=== PATIENT | female | born 2000 | race Caucasian/White ===

== ENCOUNTER 2022-05-30 09:27 | Emergency (ER) | payer OTHER, SELFPAY ==
--- NOTE | ~2022-05-30 | CT_ITS ---
EXAMINATION: CT abdomen pelvis w con DATE: 05/30/2022 11:31 INDICATION: Rectal bleeding. Abdominal pain. TECHNIQUE: Computed tomography (CT) of the abdomen and pelvis was performed with 100 mL Omnipaque-300 intravenous contrast. Automated exposure control and iterative reconstruction technique were employe d. The dose-length product was 1077.25 mGy-cm. COMPARISON: 07/11/2017 FINDINGS: Lung bases are clear. Heart size is normal. No pericardial or pleural effusion. Small sliding-type hi atal hernia. Cholecystectomy clips the gallbladder fossa. Liver, spleen, pancreas, bilateral adrenal glands and left kidney are normal. Unchanged 2 mm nonobstructing stone at the lower pole of the right kidney. T-shaped IUD in expected position within the anteverted uterus. Bladder and bilateral and th e adnexa are normal. Bowels including the appendix are normal. No free intraperitoneal gas or fluid. No pathologically enlarged abdominal or pelvic lymphadenopathy. Bones are unremarkable. IMPRESSION: 1. No acute intra-abdominal/pelvic process. 2. 2 mm nonobstructing stone at a lower pole of the right kidney. 3. IUD in the anteverted uterus. Reviewed, dictated and finalized at location A.
[2022-05-30 09:31] VITALS: BP 122/69; PULSE 85; RESP 16; TEMP 36.5; O2SAT 100
[2022-05-30 10:00] LABS: Basophils Absolute Auto 0.1 K/mm3 (0.0-0.1); Basophils Percent Auto 0.6 % (0.2-1.2); Eosinophils Absolute Auto 0.4 K/mm3 (0-0.3); Eosinophils Percent Auto 4.4 % (0-4.4); Hematocrit 40.2 % (37.0-47.0); Hemoglobin 13.4 g/dL (12.0-15.0); Immature Granulocyte Absolute 0.02 K/mm3 (0.00-0.031); Immature Granulocyte Percent A 0.2 % (0-0.5); Lymphocytes Absolute Auto 1.72 K/mm3 (0.9-3.2); Lymphocytes Percent Auto 19.1 % (18.3-44.2); Mean Corpuscular HGB Conc 33.3 g/dl (32-36); Mean Corpuscular Hemoglobin 29.7 pg (26-34); Mean Corpuscular Volume 89.1 fl (80-100); Mean Platelet Volume 9.8 fl (7.4-10.4); Monocytes Absolute Auto 0.6 K/mm3 (0.1-0.6); Monocytes Percent Auto 7.1 % (2.6-8.5); Neutrophils Absolute Auto 6.2 K/mm3 (1.3-6.7); Neutrophils Percent Auto 68.6 % (45.5-73.1); Platelet Count Result 257 k/mm3 (150-375); Red Blood Count 4.51 M/mm3 (4.2-5.4); Red Cell Distribution Width 12.7 % (11.5-14.5)
[2022-05-30 10:08] LABS: Alanine Aminotransferase 20 U/L (6-35); Albumin Level 4.6 g/dL (3.5-5.1); Alkaline Phosphatase 66 U/L (38-126); Anion Gap 6 mmol/L (8-16); Aspartate Amino Transferase 22 U/L (14-36); Bilirubin,Total 0.4 mg/dL (0.2-1.3); Blood Urea Nitrogen 10 mg/dL (7-17); Calcium 8.7 mg/dL (8.4-10.2); Carbon Dioxide 26 mmol/L (22-30); Chloride 106 mmol/L (98-107); Estimated CRCL calculation 117 ml/min; Estimated Glomerular Filt Rate > 60; Glucose 102 mg/dL (65-110); Potassium 3.5 mmol/L (3.4-5.0); Sodium 138 mmol/L (137-145)
[2022-05-30 10:19] LABS: Prothrombin Time 13.1 Seconds (11.1-14.7)
[2022-05-30 10:20] LABS: Partial Thromboplastin Time 28.7 SECONDS (22.3-36.8)
--- NOTE | 2022-05-30 12:32 | ED.GENADULT ---
HPI - General Adult General Chief complaint: GI Bleed Stated complaint: Blood in stool Time Seen by Provider: 05/30/22 09:33 History of Present Illness HPI narrative: 21-year-old female presenting to the emergency department for evaluation of multiple episodes of bright red blood per rectum. Patient states few days ago she had an episode of bright red blood per rectum that she states she did pass some small clots. Patient states intermittently with and without stool she has passed smaller amounts of blood. Patient denies any prior history of lower GI bleed. Patient did have a cholecystectomy few months ago. Patient states she does still have some intermittent epigastric pain but denies any left upper quadrant pain. Patient denies any current constipation or having to strain with bowel movements. Will be first episode of bright red blood per rectum was more significant she states the other episodes including a bowel movement today was less significant. Patient denies any associated lightheaded or dizziness. Related Data Allergies Allergy/AdvReac Type Severity Reaction Status Date / Time No Known Allergies Allergy Verified 05/30/22 09:45 Review of Systems Review of Systems: CONSTITUTIONAL: Denies fever, chills, or sweats. EYES: Denies visual changes, redness, or discharge. ENT: Denies rhinorrhea, congestion, sore throat, or otalgia. CARDIOVASCULAR: Denies chest pain, palpitations, or edema. RESPIRATORY: Denies cough or dyspnea. GASTROINTESTINAL: See HPI GENITOURINARY: Denies dysuria or hematuria. SKIN: Denies rash or itching. MUSCULOSKELETAL: Denies back pain, joint pain, or myalgia. NEUROLOGIC: Denies headache, numbness, or weakness. [facility] Family History Family History (Updated 07/26/17 @ 11:24 by DOCTOR UNKNOWN) Other Diabetes mellitus Family history of elevated blood lipids Hypertension Social History Social History Smoking status: Never smoker Alcohol intake: never Exam Narrative: APPEARANCE: Well appearing, no pain, no distress, well-nourished. HEAD: normocephalic, atraumatic. EYES: PERRLA/EOMI, conjunctivae clear. NOSE: Normal no drainage NECK: Supple. No adenopathy, no masses. RESPIRATORY: Airway patent, respirations nonlabored. Clear to auscultation bilaterally, no rales, rhonchi, wheezing. CARDIOVASCULAR: Regular rate and rhythm without murmurs rubs or gallops. ABDOMINAL: Soft, nontender, nondistended, normal bowel sounds Rectal: Some tenderness during the GENEVA. Patient did have a nonthrombosed external hemorrhoid. No internal hemorrhoids palpated. No bright red blood per rectum but patient was trace Hemoccult positive. MUSCULOSKELETAL: Moves all extremities. Strength/ROM intact, No edema, No calf tenderness. NEURO: Alert. Cranial nerves II through XII intact. Grossly intact SKIN: Warm, dry. Normal Color Course Course Emergency Course: Patient and family were updated on the results of the work-up. Patient is afebrile patient's hemoglobin is stable. Patient has platelets of 257. Patient's INR is within normal limits. No abnormalities on the CMP. CT scan showed no acute abnormalities. Patient continues to deny any lower abdominal pain at this time. Patient was advised to use a stool softener follow a high-fiber diet and to have close follow-up with GI. Patient was also informed on reasons to return to the emergency room. All question concerns were addressed. Vital Signs Vital signs: Vital Signs Temperature 97.7 F 05/30/22 09:31 Pulse Rate 85 05/30/22 09:31 Respiratory Rate 16 05/30/22 09:31 Blood Pressure 122/69 05/30/22 09:31 Pulse Oximetry 100 05/30/22 09:31 Oxygen Delivery Room Air 05/30/22 09:31 Temperature 97.7 F 05/30/22 09:31 Pulse Rate 82 05/30/22 12:41 Respiratory Rate 16 05/30/22 12:41 Blood Pressure 122/69 05/30/22 09:31 Pulse Oximetry 99 05/30/22 12:41 Oxygen Delivery Room Air 05/30/22 09:31 Medical Decision Making
[2022-05-30 12:41] VITALS: PULSE 82; RESP 16; O2SAT 99
== END 2022-05-30 12:43 | disposition home or self-care (01) ==
PROVIDERS: Emergency Provider Emergency Medicine; PCP Physician Assistant
DX: K62.5 Hemorrhage of anus and rectum (principal); Z97.5 Presence of (intrauterine) contraceptive device; N20.0 Calculus of kidney
CPT/HCPCS: 36415; 74177; 80053; 81025; 85025; 85610; 85730; 86850; 86900; 86901; 99284; Q9967

== ENCOUNTER 2023-01-11 13:23 | Outpatient (CLI) | payer BC, SELFPAY ==
[2023-01-11 14:19] LABS: Hematocrit 40.9 % (37.0-47.0); Hemoglobin 13.8 g/dL (12.0-15.0)
== END 2023-01-11 13:24 | disposition home or self-care (01) ==
PROVIDERS: PCP Physician Assistant; Visit Provider Student in an Organized Health Care Education/Training Program
DX: Z30.432 Encounter for removal of intrauterine contraceptive device (principal)
CPT/HCPCS: 36415; 85014; 85018

== ENCOUNTER 2023-01-12 00:37 | Day surgery (SDC) | payer BC, SELFPAY ==
[2023-01-03 11:00] VITALS: BMI 38.4
--- NOTE | 2023-01-03 11:05 | PC.NURSE ---
Report to the Outpatient Waiting Room, entrance under the green pavilion located off [facility], at time 12:00 on date 01/12/23. Planned Procedure Time: 2:00. Time changes happen often and if your time is changed the preop area will call you the afternoon before. - You and your visitor will be asked to self-screen and do not enter if you have any COVID symptoms. - Only one visitor is requested with a max of two and NO children visitors are allowed at this time. - The patient visitor may be requested to leave or wait in car when not with patient due to distancing restrictions. - A mask is optional within the hospital at this time. Patients may have clear liquids (water, carbonated beverages, clear teas, apple juice) until 3 hours prior to surgery (11:00) with a maximum of 20 ounces. - No food from midnight until time of surgery Take the following medications with a SIP of water the morning of surgery: N/A DO NOT STOP ANY OF YOUR OTHER PRESCRIPTION MEDICATIONS PRIOR TO SURGERY EXCEPT THE FOLLOWING Medications to discontinue per physician: N/A Date to take last dose: N/A Please no make-up, nail cameroonian, hairspray, perfume, deodorant, or body powder the day of surgery. No jewelry (including any body piercings) or valuables the day of surgery, leave them at home. Please take a shower or bath the night before, or the morning of, surgery with an antibacterial soap. Wear comfortable, loose fitting clothing. - Jewelry must be removed prior to entering the operating room. Rings and piercings that are not removed may be cut off. - The hospital will not accept responsibility for valuables. - Please leave all valuables, including medications, at home the day of surgery. If you are going home after surgery, a licensed explosives truck driver must drive you home. - NO public transportation without another adult if you receive anesthesia. - We recommend that an adult stay with you for 24 hours following discharge. - We also recommend that you do not drive, make important decision, drink alcoholic beverages, or take any drugs that were not prescribed by your health care provider for at least 24 hours after your discharge time. Follow any additional instructions given to you from your surgeon. If you or anyone in your household have experienced Covid symptoms in the past week, please notify your surgeon or the nurse liaison at the phone number below for possible testing. Telephone instructions given to PT - BLAINE CASTELLANOS and asked if any additional questions and then verbalized understanding. Patient advised to call surgeon office or pre surgery nurse liaison [phone] if any additional questions.
--- NOTE | 2023-01-11 12:09 | P.PNAN_ITS ---
Anes - Initial Pre Proc Eval Procedure: Operation Date: 01/12/23 12:00 Proposed Procedures p Hysteroscopy with Removal of Intrauterine Device - Samm Lynn MD Date/Time: 01/11/23 12:09 Surgeon: Samm Lynn MD Pre Op Diagnosis: Retained IUD Patient Data Age: 22 Gender: F Height: 1.57 m Weight: 95.25 kg Allergies Allergy/AdvReac Type Severity Reaction Status Date / Time No Known Allergies Allergy Verified 01/12/23 11:11 Home Medications Medication Instructions Recorded Confirmed Type betamethasone dipropionate 0.05 % 1 applic topical DAILY PRN 01/03/23 01/12/23 History topical cream PSORIASIS desonide 0.05 % topical cream 1 applic topical DAILY PRN 01/03/23 01/12/23 History PSORIASIS Patient hx anesthesia problems: none Family hx anesthesia problems: none Results Review: All pre-operative results and documents have been reviewed as part of the pre- operative evaluation. COUNT INCLUDES THE [facility] Past Medical History Medical History (Updated 01/12/23 @ 10:08 by Cristofer Fuentes DO) Anxiety Depression Encounter for removal of intrauterine contraceptive device Psoriasis Rheumatoid arthritis Surgical History Surgical History (Updated 01/12/23 @ 10:08 by Cristofer Fuentes DO) History of cholecystectomy Family History Family History (Updated 07/26/17 @ 11:24 by DOCTOR UNKNOWN) Other Diabetes mellitus Family history of elevated blood lipids Hypertension Social History Social History Years smoked: 2 Smoking status: Former smoker Tobacco type: cigars Smoking end date: 09/13/22 Additional smoking assessment comments: 5 CIGARS/DAY (BLACK AND MILD) Alcohol intake: current Alcohol use details: VERY RARE Substance use: current Substance use type: marijuana Living arrangements: with family Spiritual care concerns: No Anes - Eval Final PreProcedure Day of Procedure 01/11/23 12:09 Patient weight: obese Heart: regular rate and rhythm Lungs: clear to auscultation Airway: Mallampati scale class II Neurological: alert and oriented Last oral intake: >/= 8 hours ASA classification: III Emergent: no Anesthetic plan: proceed Anesthesia type and monitoring: general GIVS and standard monitoring Results Review: All pre-operative results and documents have been reviewed as part of the pre- operative evaluation. Informed Consent: The patient's anesthetic plan and its attendant risks and benefits were discussed with the patient/family/POA. Questions were solicited and answers provided to the satisfaction of the patient/family/POA.
--- NOTE | 2023-01-12 07:42 | PM.IMHP ---
H&P: HPI History of Present Illness Date/Time: 01/12/23 07:42 Chief Complaint: removal of intrauterine contraceptive device IUD strings lost Narrative: 22-year-old female who presents for operative hysteroscopy with removal of IUD. Patient desires to conceive. IUD strings were lost. Ultrasound confirmed intrauterine placement of IUD. Removal of IUD was attempted in the office without success. Review of Systems Cardiovascular: Cardiovascular: Denies chest pain, Denies leg edema, Denies palpitations, Denies dyspnea and Denies dyspnea on exertion Respiratory: Respiratory: Denies cough, Denies dyspnea and Denies dyspnea on exertion Gastrointestinal: Gastrointestinal: Denies abdominal pain, Denies constipation, Denies diarrhea, Denies nausea and Denies vomiting Genitourinary: Genitourinary: Denies hematuria, Denies urinary frequency, Denies dysuria, Denies pelvic pain, Denies urinary incontinence and Denies vaginal discharge Neurologic: Reports system reviewed and no additional complaints, except as documented Psychiatric: Psychiatric: Reports no additional psychiatric complaints Endocrine: Endocrine: Denies palpitations PMFSH Past Medical History Medical History (Updated 12/22/22 @ 10:31 by Jesica Paez CMA) Encounter for removal of intrauterine contraceptive device Family History Family History (Updated 07/26/17 @ 11:24 by DOCTOR UNKNOWN) Other Diabetes mellitus Family history of elevated blood lipids Hypertension Social History Social History Years smoked: 2 Smoking status: Former smoker Tobacco type: cigars Smoking end date: 09/13/22 Additional smoking assessment comments: 5 CIGARS/DAY (BLACK AND MILD) Alcohol intake: current Alcohol use details: VERY RARE Substance use: current Substance use type: marijuana Living arrangements: with family Spiritual care concerns: No Meds Home Medications and Allergies Home Medications Medication Instructions Recorded Confirmed Type betamethasone dipropionate 0.05 % 1 applic topical DAILY PRN 01/03/23 01/03/23 History topical cream PSORIASIS desonide 0.05 % topical cream 1 applic topical DAILY PRN 01/03/23 01/03/23 History PSORIASIS Allergies Allergy/AdvReac Type Severity Reaction Status Date / Time No Known Allergies Allergy Verified 01/03/23 10:58 Exam Const: General: no acute distress Eyes: EOM: EOMs intact bilaterally Neck: Neck: supple Thyroid: thyroid normal Chest: Breast/axilla inspection: normal inspection of the breasts Breast/axilla palpation: normal palpation of the breasts, normal palpation of the axillae and no axillary lymphadenopathy Resp: Effort & Inspection: normal respiratory effort Auscultation: clear to auscultation bilaterally Cardio: Rate: regular rate Rhythm: regular rhythm GI: Inspection: non-distended GI Palp: Yes Soft to palpation, No Tenderness to palpation present (GI) and No Guarding due to palpation present (GI) Auscultation: normal bowel sounds : General: No bladder normal to palpation External Female Exam: normal external appearance Speculum Exam - Vagina: normal vaginal discharge and No vaginal bleeding Speculum Exam - Cervix: nontender Bimanual exam- vagina & uterus: No bladder normal to palpation and No Cervical tenderness present OB/external & speculum: No vaginal bleeding Skin: General skin exam: normal color and no rashes or lesions noted Neuro: Cognition (Neuro): normal cognition Speech: normal speech Extrem: General: normal to inspection and no edema Psych: Mental Status: mental status grossly normal Affect: normal affect Assessment and Plan Assessment and plan (1) Encounter for removal of intrauterine contraceptive device: Code(s): Z30.432 - Encounter for removal of intrauterine contraceptive device Status: Acute Assessment and Plan: 22-year-old female who presents for IUD removal Patient desires to conceive IU
--- NOTE | 2023-01-12 07:44 | WPDHPUPDATE1 ---
History and Physical Update Update Date/Time: 01/12/23 07:44 History and Physical has been reviewed, including an updated exam of the patient. There are NO changes in the patient's condition. Risks, benefits, and alternatives have been discussed and questions answered. Patient agrees to proceed with procedure.
[2023-01-12] MEDS: LACTATED RINGERS 1,000 ML 30 ML IV CONT (11:10)
[2023-01-12] MEDS: ACETAMINOPHEN 500 MG TABLET 1000 MG PO (11:11)
[2023-01-12 11:13] VITALS: BP 123/78; PULSE 93; RESP 16; TEMP 36.6; O2SAT 97
[2023-01-12] MEDS: LIDOCAINE 1% BUFFERED WITH 8.4% SODIUM BICARB 1 ML SYRINGE 10 ML INFILTRATE (12:15)
--- NOTE | 2023-01-12 12:17 | W.PM.PROC2 ---
Procedure Note - Detailed Date of Procedure 01/12/23 Pre-op Diagnosis Retained IUD Post-op Diagnosis Same Procedure Performed paracervical block operative hysteroscopy IUD removal Surgeon Samm Lynn MD Anesthesia General Indications retained IUD Findings IUD in the lower uterine segment, IUD strings attached. normal appearing intrauterine cavity. Normal tubal ostia bilaterally Description of Procedure Joann Johnson Presents for the above procedure. She was counseled as to the indications, risks, benefits, and alternatives to surgery, with the risks including bleeding, infection, damage to surrounding organs, VTE, and complications of anesthesia. Her verbal and written consent was obtained. PROCEDURE: The patient was taken to the OR and general anesthesia induced. She was prepped and draped in Vish stirrups with support of the back and bilateral lower extremities. I/O catheterization performed of the bladder. The above findings were noted. Infiltration with 1% lidocaine at the 3 and 9 o'clock cervical positions was performed. A single tooth tenaculum was placed on the anterior lip of the cervix. The cervix was dilated with sequential Susana dilators. Hysteroscopy, using a normal saline medium, was performed and showed the above findings. hysteroscopic graspers were introduced through the operative hysteroscope change. IUD strings were grasped with hysteroscopic graspers. IUD was removed along with the hysteroscope. IUD was removed in its entirety. Hysteroscope was reintroduced into the uterine cavity. Survey of the cavity was performed and showed normal. The patient tolerated the procedure well. Sponge, lap, and needle counts were correct. The patient was taken to the recovery room in stable condition. Estimated Blood Loss 5 Urine Output 50 Drains No Packing No Pathology None sent Complications No immediate complications Condition Stable Disposition PACU [facility] Billing Surgery - Charge Forward: Surgery Billing
[2023-01-12 12:22] VITALS: BP 108/88; PULSE 92; RESP 14; O2SAT 97
[2023-01-12 12:45] VITALS: BP 110/76; PULSE 76; RESP 20
[2023-01-12] MEDS: oxyCODONE HCL (*CRX) 5 MG TAB IR PO (12:59)
[2023-01-12 13:15] VITALS: BP 120/78; PULSE 80; RESP 20
[2023-01-12 13:30] VITALS: BP 110/75; PULSE 70; RESP 20
== END 2023-01-12 13:37 | disposition home or self-care (01) ==
PROVIDERS: PCP Physician Assistant; Visit Provider Student in an Organized Health Care Education/Training Program
PROC: 0U5B8ZZ Destruction of Endometrium, Via Natural or Artificial Opening Endoscopic (ICD-10-PCS; CPT 58563; principal; 2023-01-12 12:00)
DX: T83.32XA Displacement of intrauterine contraceptive device, initial encounter (principal); Y84.8 Other medical procedures as the cause of abnormal reaction of the patient, or of later complication, without mention of misadventure at the time of the procedure; Z87.891 Personal history of nicotine dependence; F12.90 Cannabis use, unspecified, uncomplicated
CPT/HCPCS: 58562; A9270; J2250; J2405; J2704; J3010; J7120

== ENCOUNTER 2023-03-04 21:17 | Emergency (ER) | payer BC, SELFPAY ==
--- NOTE | ~2023-03-04 | CT_ITS ---
EXAMINATION: CT brain wo con INDICATION: Headache COMPARISON: None TECHNIQUE: Standard unenhanced head CT. The dose-length product (DLP) was 681.00 mGy-cm. The mA was a djusted according to patient size. Iterative reconstruction technique was employed. FINDINGS: There is no intracranial hemorrhage, acute infarction, or abnormal mass lesion. The ventric les are normal. There is no abnormal mass effect or midline shift. The guzman-white matter differentiat ion is normal. The basal cisterns are patent. The orbits are normal. There is mild mucosal thickening of the paranasal sinuses. IMPRESSION: 1. No acute intracranial abnormality. Reviewed, dictated and finalized at location A.
[2023-03-04 21:29] VITALS: BP 131/83; PULSE 101; RESP 18; TEMP 36.9; O2SAT 99
--- NOTE | 2023-03-04 23:03 | ED.HA ---
HPI - Headache General Chief Complaint: Headache Stated Complaint: Deandre GARCÍA arm numbness Time Seen by Provider: 03/04/23 22:51 History of Present Illness HPI Narrative: Patient is a 22-year-old female with a history of migraine headaches here for evaluation of left-sided migraine. Patient states the pain is sharp and stabbing in nature, came on suddenly while she was at rest, concentrated around the left posterior head. - thunderclap quality. She had some tingling in her left hand as well which is what concerned her and prompted her ED evaluation. The tingling has since resolved. Also slightly nauseated and vomited once. She took ibuprofen without relief of her pain. She denies any visual changes, neck stiffness, fevers or chills. Has been congested lately and has been sneezing, has not yet taken covid test. Related Data Home Medications Medication Instructions Recorded Confirmed betamethasone dipropionate 0.05 % 1 applic topical DAILY PRN 01/03/23 01/12/23 topical cream PSORIASIS desonide 0.05 % topical cream 1 applic topical DAILY PRN 01/03/23 01/12/23 PSORIASIS Allergies Allergy/AdvReac Type Severity Reaction Status Date / Time No Known Allergies Allergy Verified 01/26/23 10:11 Review of Systems Review of Systems: Gen: Denies fevers or chills Eyes: Denies eye pain or visual change ENT: Denies congestion Respiratory: Denies shortness of breath or cough CV: Denies chest pain or palpitations GI: Reports nausea and vomiting. Denies abdominal pain or diarrhea denies burning, urgency, frequency or hematuria Musculoskeletal: Denies back pain or muscle pain Neuro: Reports headache, paresthesia in L hand Skin: Denies rash Except as documented, all other systems reviewed and negative [facility] Past Medical History Medical History Anxiety Depression Encounter for removal of intrauterine contraceptive device Psoriasis Rheumatoid arthritis Surgical History Surgical History History of cholecystectomy Family History Family History (Updated 07/26/17 @ 11:24 by DOCTOR UNKNOWN) Other Diabetes mellitus Family history of elevated blood lipids Hypertension Social History Social History Years smoked: 2 Smoking status: Former smoker Tobacco type: cigars Smoking end date: 09/13/22 Additional smoking assessment comments: 5 CIGARS/DAY (BLACK AND MILD) Alcohol intake: current Alcohol use details: VERY RARE Substance use: current Substance use type: marijuana Living arrangements: with family Spiritual care concerns: No Exam Narrative: APPEARANCE: Well appearing, no pain in distress, well-nourished. Head: Normocephalic and atraumatic. EYES: PERRLA/EOMI, conjunctivae clear NOSE: No nasal drainage EARS: External ear normal in appearance THROAT: Oropharynx is clear. Mucous membranes are moist. NECK: Supple. No adenopathy, no masses. RESPIRATORY: Airway patent, respirations nonlabored. Clear to auscultation bilaterally, no rales, rhonchi, wheezing. CARDIOVASCULAR: Regular rate and rhythm without murmurs, rubs, or gallops. ABDOMINAL: Normoactive bowel sounds. Soft, nontender, nondistended. No rebound tenderness or guarding. MUSCULOSKELETAL: Extremities are warm and well-perfused. Moves all extremities well. No edema. NEURO: CN II-XII intact. Normal speech. No focal neurologic deficits. 5/5 strength in bilateral upper and lower extremities. SKIN: Skin is warm and dry. No rashes. PSYCHIATRIC: Normal affect/mood. Course Vital Signs Vital signs: Vital Signs Temperature 98.4 F 03/04/23 21:29 Pulse Rate 101 H 03/04/23 21:29 Respiratory Rate 18 03/04/23 21:29 Blood Pressure 131/83 03/04/23 21:29 Pulse Oximetry 99 03/04/23 21:29 Oxygen Delivery Room Air 03/04/23 21:29 Temperature 98.4 F 03/04/23 21:29 Pulse Rate 95 03/05/23 00:44 R
[2023-03-04] MEDS: diphenhydrAMINE HCl INJ 50 MG/ML VIAL 25 MG IV PUSH (23:26)
[2023-03-04] MEDS: SODIUM CHLORIDE 0.9% IV 1,000 ML 999 ML IV CONT (23:26)
[2023-03-04 23:30] VITALS: BP 123/82; PULSE 89; RESP 18; O2SAT 99
[2023-03-04 23:32] VITALS: BP 90/79; PULSE 84; RESP 17; O2SAT 100
[2023-03-04] MEDS: PROCHLORPERAZINE EDISYLATE 10 MG/2 ML VIAL IV PUSH (23:34)
[2023-03-04 23:47] VITALS: BP 117/106; PULSE 124; RESP 21; O2SAT 99
[2023-03-05 00:02] VITALS: BP 129/83; PULSE 86; RESP 19; O2SAT 99
[2023-03-05 00:17] VITALS: BP 135/90; PULSE 102; RESP 17; O2SAT 100
[2023-03-05 00:44] VITALS: BP 116/68; PULSE 95; RESP 19; O2SAT 100
== END 2023-03-05 00:50 | disposition home or self-care (01) ==
PROVIDERS: Emergency Provider Physician Assistant; PCP Physician Assistant
DX: G43.909 Migraine, unspecified, not intractable, without status migrainosus (principal); L40.9 Psoriasis, unspecified; M06.9 Rheumatoid arthritis, unspecified; Z90.49 Acquired absence of other specified parts of digestive tract; Z87.891 Personal history of nicotine dependence; Z97.5 Presence of (intrauterine) contraceptive device
CPT/HCPCS: 70450; 96361; 96374; 96375; 99284; J0780; J1200; J7030

== ENCOUNTER → 2023-10-04 08:54 | Outpatient (CLI) | payer BC, SELFPAY ==
--- NOTE | ~2023-10-04 | US_ITS ---
EXAMINATION: US OB /maternal detail DATE: 10/04/2023 09:43 INDICATION: Second trimester anatomic survey TECHNIQUE: Real-time ultrasound of the pelvis was performed. COMPARISON: None. FINDINGS: There is a single living fetus in vertex presentation. The placenta is posterior. The measured cervic al length is 4.3 cm. heart rate is 160 beats per minute (bpm). cardiac activity and feta l movement are noted. The amniotic fluid index is subjectively normal. The following anatomy was identified as normal: 4 chamber heart 3 vessel cord cord insertion kidneys urinary bladder stomach spine diaphragm ventricles cisterna magna cerebellum The following biometric data were obtained: Biparietal diameter (BPD): 4.8 cm; head circumference (HC): 18.1 cm; abdominal circumference (AC): 14 .9 cm; femur length (FL): 3.1 cm. These measurements are concordant. Estimated weight is 326 g +/- 49 g, which correlates with the 79th percentile when 02/25/2024 is used as estimated date of delivery. As single measurements, these parameters are each equal to the following estimated gestational ages w ith ranges of +/- 2 standard deviations: BPD: 20 weeks 3 days +/- 1 weeks 5 days. HC: 20 weeks 3 days +/- 1 weeks 3 days. AC: 20 weeks 1 days +/- 2 weeks 0 days. FL: 19 weeks 5 days +/- 1 weeks 6 days. estimated gestational age based solely on measurements from this exam is 20 weeks 1 days +/- 1 weeks 3 days. IMPRESSION: 1. Single living fetus in vertex presentation. 2. Estimated weight is 326 g +/- 49 g, which correlates with the 79th percentile when 02/25/2024 is used as estimated date of delivery. Reviewed, dictated and finalized at location F. [employer] IMPRESSION: 1. Single living fetus in vertex presentation. 2. Estimated weight is 326 g +/- 49 g, which correlates with the 79th per centile when 02/25/2024 is used as estimated date of delivery.
== END ==
PROVIDERS: PCP Student in an Organized Health Care Education/Training Program; Visit Provider Obstetrics & Gynecology
DX: Z34.92 Encounter for supervision of normal pregnancy, unspecified, second trimester (principal); Z3A.20 20 weeks gestation of pregnancy
CPT/HCPCS: 76805

== ENCOUNTER 2023-12-07 11:37 | Outpatient (RCR) | payer BC, SELFPAY ==
[2023-12-07 12:06] LABS: Basophils Percent Auto 0.3 % (0.2-1.2); Eosinophils Absolute Auto 0.3 K/mm3 (0-0.3); Eosinophils Percent Auto 2.7 % (0-4.4); Hemoglobin 10.5 g/dL (12.0-15.0); Immature Granulocyte Absolute 0.07 K/mm3 (0.00-0.031); Immature Granulocyte Percent A 0.6 % (0-0.5); Lymphocytes Percent Auto 17.6 % (18.3-44.2); Mean Corpuscular HGB Conc 32.8 g/dl (32-36); Mean Corpuscular Hemoglobin 30.2 pg (26-34); Mean Platelet Volume 10.8 fl (7.4-10.4); Monocytes Absolute Auto 0.5 K/mm3 (0.1-0.6); Monocytes Percent Auto 4.7 % (2.6-8.5); Neutrophils Percent Auto 74.1 % (45.5-73.1); Platelet Count Result 201 k/mm3 (150-375); Red Blood Count 3.48 M/mm3 (4.2-5.4); Red Cell Distribution Width 13.5 % (11.5-14.5); White Blood Count 10.8 K/mm3 (4.5-10.0)
[2023-12-07] MEDS: RHO(D) IMMUNE GLOBULIN 300 MCG/2 ML SYRINGE IM (16:08)
== END 2024-03-06 23:59 | disposition home or self-care (01) ==
LOC: ANHLAB 11:37
PROVIDERS: PCP Student in an Organized Health Care Education/Training Program; Visit Provider Obstetrics & Gynecology
DX: Z29.13 Encounter for prophylactic Rho(D) immune globulin (principal); O36.0190 Maternal care for anti-D [Rh] antibodies, unspecified trimester, not applicable or unspecified; Z3A.00 Weeks of gestation of pregnancy not specified
CPT/HCPCS: 36415; 85025; 85461; 86850; 86900; 86901; 90384; 96372; J2790

== ENCOUNTER 2024-02-11 09:04 | Inpatient (IN) | payer BC, SELFPAY ==
[2024-02-11] VITALS (149 sets, daily range): BP systolic 81–191; BP diastolic 43–170; PULSE 58–134; RESP 16–18; TEMP 36.4–37.4; O2SAT 93–100; BMI 37.5
--- NOTE | 2024-02-11 10:53 | LDADM ---
This patient, Joann Johnson, was admitted to Labor/Delivery/Recovery 106 on 02/11/24 at 09:04. Plans for labor, pain management and were discussed with patient. Patient/family oriented to hospital policies and general routines including ID bracelet, bed and alarms, visiting hours, pain management, procedures, bathroom and other care routines, personal items, smoking policy, room service/diet and guest tray routines, security routines, and visiting hours. Patient/Family are encouraged to report perceived risks to care and to ask questions if they do not understand what they are told or what they should do. See [facility] for further documentation.
--- NOTE | 2024-02-11 10:54 | WPDHPUPDATE1 ---
History and Physical Update Update Date/Time: 02/11/24 10:54 23 yo G1 at 38w who presents in labor History and Physical has been reviewed, including an updated exam of the patient. There are NO changes in the patient's condition. Risks, benefits, and alternatives have been discussed and questions answered. Patient agrees to proceed with procedure. A/P: G1 - glucose 168 @ NOB...3 hour normal - Rh neg; needs rhogan - admit to L&D - routine admission orders -GBS neg - expectant management -will augment with AROM -continuous EFM
[2024-02-11] MEDS: LACTATED RINGERS 1,000 ML 125 ML IV CONT ×2 (11:15→13:11)
[2024-02-11 11:37] LABS: Basophils Percent Auto 0.2 % (0.2-1.2); Eosinophils Absolute Auto 0.1 K/mm3 (0-0.3); Eosinophils Percent Auto 0.7 % (0-4.4); Hematocrit 29.3 % (37.0-47.0); Hemoglobin 9.8 g/dL (12.0-15.0); Immature Granulocyte Percent A 0.8 % (0-0.5); Lymphocytes Absolute Auto 2.05 K/mm3 (0.9-3.2); Lymphocytes Percent Auto 17.1 % (18.3-44.2); Mean Corpuscular HGB Conc 33.4 g/dl (32-36); Mean Corpuscular Hemoglobin 28.9 pg (26-34); Mean Corpuscular Volume 86.4 fl (80-100); Mean Platelet Volume 9.3 fl (7.4-10.4); Monocytes Absolute Auto 0.4 K/mm3 (0.1-0.6); Monocytes Percent Auto 3.7 % (2.6-8.5); Neutrophils Absolute Auto 9.3 K/mm3 (1.3-6.7); Neutrophils Percent Auto 77.5 % (45.5-73.1); Platelet Count Result 303 k/mm3 (150-375); Red Blood Count 3.39 M/mm3 (4.2-5.4); Red Cell Distribution Width 14.4 % (11.5-14.5)
[2024-02-11] MEDS: OXYTOCIN 30 UNITS/NS 500 ML 30 UNITS/500 ML BAG 999 UNITS IV CONT (18:50)
--- NOTE | 2024-02-11 19:00 | PM.OBPRVD ---
OB - Vaginal Delivery Note Procedure Delivery date: 02/11/24 Induction method: None Delivery augmentation: Rupture of Membranes Delivery monitor: External FHT and External Uterine Route of delivery: Episiotomy description: None Laceration Description: Perineal - 2nd Degree Delivery repair: vicryl Specimen: No Quantitative Blood Loss (ml): 150 Anesthesia type: Epidural Disposition: Floor Complications: No immediate complications Narrative: Patient pushed for a spontaneous vaginal delivery. The fetus was delivered atraumatically and placed on the maternal abdomen. The cord was clamped and cut after 1 minute of life. The cord was double clamped and cut and a segment of cord was collected for cord gases. Cord blood was collected for blood type and Coomb's testing. The placenta delivered spontaneously and was noted to be intact. The perineum was inspected and 2nd degree perineal laceration was noted. The laceration was repaired with 3-0 vicryl in a running fashion. The uterus was firm and good hemostasis was noted. Baby Date of : 02/11/24 Time of : 18:47 Weeks of gestation at delivery: 38 Infant gender: Male presentation: vertex position: Right Occiput Anterior Placenta delivery description: Spontaneous Cord Vessel Description: 3 Vessels score one minute: 8 score five minutes: 9 AMG Delivery Billing Delivery Delivery: Delivery Charge
[2024-02-11] MEDS: OXYTOCIN 30 UNITS/NS 500 ML 30 UNITS/500 ML BAG 125 UNITS IV CONT (19:30)
--- NOTE | 2024-02-11 21:19 | PC.NURSE ---
Patient transferred to post room # 287 via (W/C ). Support person present. Oriented to unit, room, information board, rooming in, admission packet and security measures. Patient verbalizes understanding.
[2024-02-11] MEDS: IBUPROFEN 600 MG TABLET PO (22:28)
[2024-02-12 01:28] VITALS: BP 112/62; PULSE 69; RESP 18; TEMP 37; O2SAT 97
[2024-02-12] MEDS: ACETAMINOPHEN 325 MG TABLET 650 MG PO ×2 (05:26→17:15)
[2024-02-12 05:50] LABS: Hematocrit 27.4 % (37.0-47.0)
[2024-02-12 08:00] VITALS: BP 100/57; PULSE 73; RESP 16; TEMP 36.4; O2SAT 98
[2024-02-12] MEDS: POLYSACCHARIDE IRON COMPLEX 150 MG CAPSULE PO ×2 (08:53→17:15)
[2024-02-12] MEDS: DOCUSATE SODIUM 100 MG CAPSULE PO ×2 (08:53→17:15)
[2024-02-12] MEDS: IBUPROFEN 600 MG TABLET PO ×2 (08:53→20:09)
[2024-02-12] MEDS: MULTIVIT/MIN/PREN/FOL AC/IRON TABLET 1 TAB PO (08:53)
--- NOTE | 2024-02-12 10:45 | P.PNOB_ITS ---
OB - PN: Subj Subjective Date/time seen: 02/12/24 10:50 Narrative: PPD#1 Joann reports doing well today. Her bleeding is social worker clinical. Her pain is controlled. She is tolerating regular diet, voiding, passing gas, and ambulating without issues. She is breast feeding. She would like her son circumcised. OB - PN: Obj Data Labs 02/12/24 05:44 Labs: Laboratory Results - last 24 hr 02/11/24 02/12/24 10:41 05:44 WBC 12.0 H RBC 3.39 L Hgb 9.8 L 9.0 L Hct 29.3 L 27.4 L MCV 86.4 MCH 28.9 MCHC 33.4 RDW 14.4 Plt Count 303 D MPV 9.3 Immature Gran % (Auto) 0.8 H Neut % (Auto) 77.5 H Lymph % (Auto) 17.1 L [place] % (Auto) 3.7 Eos % (Auto) 0.7 Baso % (Auto) 0.2 Lymph # (Auto) 2.05 [place] # (Auto) 0.4 Eos # (Auto) 0.1 Baso # (Auto) 0.0 Abs Immat Gran (auto) 0.10 H Absolute Neuts (auto) 9.3 H Absolute Nucleated RBC 0.000 Nucleated RBC % 0.0 Blood Type O Negative Antibody Screen Negative OB - PN A/P Assessment and Plan (1) Normal vaginal delivery: Code(s): O80 - Encounter for full-term uncomplicated delivery Status: Acute Plan day: 1 Plan: routine care Comments: - PO pain meds - Regular diet - Ambulation and hydration encouraged - Continue putting baby to breast q2-3hr - Circumcision performed w/o issue Time Spent With Patient Time: Total time spent is greater than 50% in coordination of care (as documented) at patient's floor/unit and/or counseling patient: Review of Systems Constitutional: Constitutional: Denies chills, Denies fever(s) and Denies headache(s) Eyes: Eyes: Denies change in vision ENT: Denies dizziness and Denies headache(s) Cardiovascular: Cardiovascular: Denies chest pain, Denies palpitations and Denies dyspnea Respiratory: Respiratory: Denies cough and Denies dyspnea Gastrointestinal: Gastrointestinal: Denies nausea and Denies vomiting Neurologic: Denies dizziness and Denies headache(s) Endocrine: Endocrine: Denies palpitations Exam Const: General: cooperative, comfortable and no acute distress Orientation/consciousness: patient oriented x3 Resp: Effort & Inspection: normal respiratory effort Auscultation: clear to auscultation bilaterally Cardio: Rate: regular rate GI: Inspection: non-distended GI Palp: No abdominal tenderness and Yes Soft to palpation Auscultation: normal bowel sounds : Other: fundus firm Skin: General skin exam: normal color Neuro: General: patient oriented x3 Extrem: General: normal to inspection Psych: Appearance: grossly normal Affect: normal affect Attitude: cooperative
--- NOTE | 2024-02-12 11:35 | PC.NURSE ---
[id number] Introductions were made, then consulted with patient to assess needs related to . Mother led the conversation with her?plans to feed?her infant and the?experience so far. Encouraged understanding of the benefits of skin to skin (demonstrating unwrapping and placing upright on her chest), stimulating with massage touch, changing positions to encourage wakefulness, how to watch for early feeding cues, responsive feeding, feeding on demand (aiming for 8-12 times in 24 hours, about every 2-3 hours), milk production, hand expression, building/maintaining a milk supply, duration of feeding, signs of adequate intake/output and how to record on the feeding sheet. Mother works well with her infant with encouragement, education, and assistance. Infant has spit at the lips that is wiped away. Reviewed positioning and ear, shoulder, hip alignment, supporting the breast to facilitate a deep latch, asymmetrical latch (off-center), leading with the chin with a big, open, wide gape and body close to mother. Mother was able to demonstrate learning hand expression and finger fed drops of colostrum to her infant. Infant demonstrated some feeding cues and the breast was offered. Infant refused with crying at first, changed position back to upright [id number], then after feeding cues again, breast was offered and latched optimally to the right breast in football position for one suck, then infant demonstrated gagging. Infant refused to latch after that by arching his back and pushing from the breast. Mother shared that her was able to maintain latch without pain to mother with the initial breastfeed, then she hasn't had a good feeding since which led to her decision to supplement with a bottle last night. Reviewed comfort measures of healing with a warm, wet washcloth to rinse breast, then leave open to air-dry, good handwashing when or touching the breast/nipples to prevent infection. was placed upright [id number] on mothers chest/breast. Reviewed safe sleep education. Mother voiced understanding of skin to skin, stimulating with massage touch, responsive feedings, hand expressed colostrum, talking to to encourage if it has been 2 -2.5 hours since the start of the last , to call if does not latch, safe sleep, or if there is discomfort with . Resources used for education were facilitated with the visual educational handouts/ tools/mom and baby guide. Inpatient/outpatient resources provided with business card, feeding sheet, name written on the communication board, and the mom/baby guide. Parents voiced understanding of information, demonstrated learning and will call if there is a request for assistance. Reported to the Primary RN.
--- NOTE | 2024-02-12 13:12 | PC.NURSE ---
1300 - Purposefully rounded to take to mother from the desk due to it has been 3 hours since the last attempt to breastfeed. Demonstrated stimulating to wake, diaper checked, and massage touch, then infant was placed upright skin to skin on mothers chest/breast. Mother was encouraged to massage touch, talk and stimulate for feeding with hand expressed colostrum. Mother was instructed to call if infant starts to demonstrate feeding cues or doesn't wake to in 20-30 minutes. Reported to the Primary RN.
--- NOTE | 2024-02-12 13:34 | WPDANLDPN2 ---
Anes-Prog Note L&D Date/Time: 02/12/24 13:34 Comfortable throughout: labor and delivery Neuraxial method: epidural Epidural/Spinal procedure site: clean & non-tender Neuro status: Neuro function grossly intact. Cardiovascular status: normal Respiratory status: normal Airway patency: baseline Mental status: baseline Post-Op hydration status: normal Vital Signs: Last Vital Signs Temp 36.4 C 02/12/24 08:00 Pulse 73 02/12/24 08:00 Resp 16 02/12/24 08:00 BP 100/57 L 02/12/24 08:00 Pulse Ox 98 02/12/24 08:00 O2 Del Method Room Air 02/12/24 08:00 Pain score (VAS): 0/10 Post-procedural complaints: none Patient feedback: Patient satisfied with anesthetic care.
[2024-02-12] MEDS: RHO(D) IMMUNE GLOBULIN 300 MCG/2 ML SYRINGE IM (15:18)
[2024-02-12 15:31] LABS: Rapid Plasma Reagin Non-Reactive (NonReactive)
[2024-02-12 20:00] VITALS: BP 127/68; PULSE 82; RESP 18; TEMP 36.4; O2SAT 98
[2024-02-13] MEDS: MEASLES,MUMPS,RUBELLA VACCINE 0.5 ML VIAL SUB-Q (07:50)
[2024-02-13] MEDS: IBUPROFEN 600 MG TABLET PO (07:52)
[2024-02-13] MEDS: DOCUSATE SODIUM 100 MG CAPSULE PO (07:52)
[2024-02-13] MEDS: POLYSACCHARIDE IRON COMPLEX 150 MG CAPSULE PO (07:52)
[2024-02-13] MEDS: MULTIVIT/MIN/PREN/FOL AC/IRON TABLET 1 TAB PO (07:52)
[2024-02-13 08:05] VITALS: BP 106/65; PULSE 60; RESP 16; TEMP 36.7; O2SAT 100
--- NOTE | 2024-02-13 08:21 | PM.OBDSVD ---
DS: Admitting Diagnosis Discharge Date 02/13/24 Admitting Diagnosis Intrauterine at term DS: Discharge Diagnosis Discharge Diagnosis (1) Normal vaginal delivery: Code(s): O80 - Encounter for full-term uncomplicated delivery Status: Acute OB - DS: Summary OB Procedures : None OB Procedures Intrapartum: Spontaneous Vag Delivery OB Procedures: : None Peripartum Data Laceration Description: Perineal - 2nd Degree Episiotomy description: None Status at Discharge Functional status at discharge: independent ambulation Overall status at discharge: patient is back to baseline Time Spent with Patient Time attestation: Total time spent providing and/or coordinating discharge services: Time spent: Less than 30 minutes Exam Const: General: comfortable and no acute distress Resp: Effort & Inspection: normal respiratory effort Auscultation: clear to auscultation bilaterally Cardio: Rate: regular rate GI: GI Palp: Yes Soft to palpation Auscultation: normal bowel sounds Other: Fundus firm below umbilicus Psych: Appearance: grossly normal Mental Status: mental status grossly normal Affect: normal affect DS: Data Data Completed and Pending Labs on day of discharge: Labs from last 24 hours 02/12/24 02/11/24 05:44 10:41 RPR Non-reactive Blood Type O Negative Antibody Screen TNP Screen Negative Baby's Blood Type A pos Baby's ROZ Negative Doses of RhIg Required 1 Discharge Plan Discharge Attending physician on discharge: Charlene Sanchez Discharging Clinician: Charlene Sanchez Patient Disposition: Home, Self-Care Activity: may shower and pelvic rest Diet: regular Patient Instructions: How to Stop Smoking (DC), Vaginal Delivery (DC) Stand Alone Forms: General Discharge Information Follow-up/Referrals: Samm Lynn MD [Physician] - 4 Weeks Discharge Medications: New acetaminophen 325 mg Tablet 650 mg PO Q6H PRN (Reason: Mild Pain (1-3) Or Headache) Qty: 60 0RF docusate sodium 100 mg Capsule 100 mg PO BID PRN (Reason: Constipation) Qty: 60 0RF ibuprofen 600 mg Tablet 600 mg PO Q6H PRN (Reason: Cramping) Qty: 40 0RF acetaminophen 500 mg tablet 500 mg PO Q6H PRN (Reason: pain) Qty: 30 0RF ibuprofen 600 mg tablet 600 mg PO Q6H PRN (Reason: pain) Qty: 30 0RF polysaccharide iron complex 150 mg iron Capsule 150 mg PO BIDWM Qty: 90 0RF Continued #2 Tablet DAILY desonide 0.05 % cream 1 applic TOPICAL DAILY PRN (Reason: PSORIASIS) betamethasone dipropionate 0.05 % cream 1 applic TOPICAL DAILY PRN (Reason: PSORIASIS) Date of admission: 02/11/24 09:04 Primary Care Provider: PHYSICIAN,TECHNICAL MARKETING ENGINEER Admitting Provider: Samm Lynn Attending physician on admission: Samm Lynn Condition: Stable
--- NOTE | 2024-02-13 11:06 | PC.NURSE ---
[id number] Consulted with mother concerning needs and she shared her ability to independently latch infant optimally without pain. Mother is feeding appropriately for growth of infant and understands stimulating to eat if needed. Infant has had appropriate feedings in the last 24 hours meets the outcomes for weight, output, blood sugar and jaundice at this time. Reinforced understanding of milk production, transition of milk, signs of adequate intake, transition of stool, prevention/relief of engorgement, plugged ducts, mastitis, responsive watching for feeding cues, the different methods of stimulating to breastfeed 1-3 hours after the start of the last feeding, community resources (business card for services), and when to call a provider using the resource of the feeding sheet along with the mom and baby guide. Mother voiced understanding of the information shared, is confident to continue effectively her infant at home, when to call for assistance, denies any additional assistance or education at this time.
--- NOTE | 2024-02-13 12:57 | PC.NURSE ---
Patient instructed on viewing the discharge video Mother & Baby Care, The First Two Weeks . Patient was given the opportunity and encouraged to ask questions. Patient verbalized understanding of information shared and has been given the mother/baby guide for home reference.
[2024-02-14 11:41] VITALS: BP 114/72; PULSE 79; RESP 18; TEMP 36.6; O2SAT 100
== END 2024-02-13 13:27 | disposition home or self-care (01) | DRG 807 ==
LOC: ANHLDR 10:30 → ANHOB2 21:28
PROVIDERS: Admitting Provider Student in an Organized Health Care Education/Training Program; Visit Provider Student in an Organized Health Care Education/Training Program
DX: O70.1 Second degree perineal laceration during delivery (principal); Z37.0 Single live birth; Z3A.38 38 weeks gestation of pregnancy
CPT/HCPCS: 36415; 85014; 85018; 85025; 85461; 86592; 86850; 86900; 86901; 90384; 90710; A9270; J2590; J2790; J2795; J7120

== ENCOUNTER 2024-04-09 17:20 | Outpatient (CLI) | payer BC, SELFPAY ==
[2024-04-09 18:31] LABS: Beta HCG Quantitative < 2.39 mIU/ML
== END 2024-04-09 17:21 | disposition home or self-care (01) ==
LOC: ANHLAB 17:21
PROVIDERS: Visit Provider Student in an Organized Health Care Education/Training Program
DX: N92.6 Irregular menstruation, unspecified (principal)
CPT/HCPCS: 36415; 84702